=== PATIENT | female | born 1995 | race American Indian/Alaskan Native ===

== ENCOUNTER 2020-04-28 03:26 | Emergency (ER) | payer MEDICAID ==
[2020-04-28 03:37] VITALS: BP 139/81
--- NOTE | 2020-04-28 03:52 | Emergency Department Report ---
ED Female HPI - General Chief complaint: Vaginal Bleeding Stated complaint: HEAVY VAGINAL BLEEDING OVER A MONTH Time Seen by Provider: 04/28/20 03:48 Source: patient Mode of arrival: Ambulatory Limitations: No Limitations - History of Present Illness Initial comments: Patient is a 24-year-old female that presents emergency room with complaints of vaginal bleeding x4 weeks. Patient states however tonight the bleeding increased. Patient states that she has not seen an LIVING ADVISOR. Patient denies pain. Patient denies fatigue. Patient denies weakness. Patient denies abdominal pain. Patient denies dysuria. Patient denies chance of . Patient denies vaginal discharge. Patient denies being on control. Patient states she is a G2, MD Complaint: vaginal bleeding Severity: severe Improves with: none Worsens with: none Are you Now?: No Associated Symptoms: vaginal bleeding. denies: vaginal discharge, abdominal pain, nausea/vomiting, fever/chills, headaches, loss of appetite, dysuria, hematuria, rash, seizure, shortness of breath, syncope, weakness - Related Data Sexually active: Yes : 2 Para: 1 A: 1 Allergies Allergy/AdvReac Type Severity Reaction Status Date / Time No Known Allergies Allergy Unverified 04/28/20 03:38 ED Review of Systems ROS: Stated complaint: HEAVY VAGINAL BLEEDING OVER A MONTH Other details as noted in HPI Constitutional: denies: chills, fever Eyes: denies: eye pain, eye discharge, vision change ENT: denies: ear pain, throat pain Respiratory: denies: cough, shortness of breath, wheezing Cardiovascular: denies: chest pain, palpitations Endocrine: no symptoms reported Gastrointestinal: denies: abdominal pain, nausea, diarrhea Genitourinary: abnormal menses. denies: urgency, dysuria, discharge Musculoskeletal: denies: back pain, joint swelling, arthralgia Skin: denies: rash, lesions Neurological: denies: headache, weakness, paresthesias Psychiatric: denies: anxiety, depression Hematological/Lymphatic: denies: easy bleeding, easy bruising ED Past Medical Hx - Past Medical History Previous Medical History?: No - Surgical History Past Surgical History?: No - Family History Family history: no significant - Social History Smoking Status: Never Smoker Substance Use Type: Alcohol, Marijuana ED Physical Exam - General Limitations: No Limitations General appearance: alert, in no apparent distress - Head Head exam: Present: atraumatic, normocephalic - Eye Eye exam: Present: normal appearance - ENT ENT exam: Present: mucous membranes moist - Neck Neck exam: Present: normal inspection - Respiratory Respiratory exam: Present: normal lung sounds bilaterally. Absent: respiratory distress - Cardiovascular Cardiovascular Exam: Present: regular rate, normal rhythm. Absent: systolic murmur, diastolic murmur, rubs, gallop - GI/Abdominal GI/Abdominal exam: Present: soft, normal bowel sounds - Extremities Exam Extremities exam: Present: normal inspection - Back Exam Back exam: Present: normal inspection - Neurological Exam Neurological exam: Present: alert, oriented X3 - Psychiatric Psychiatric exam: Present: normal affect, normal mood - Skin Skin exam: Present: warm, dry, intact, normal color. Absent: rash ED Course Vital Signs 04/28/20 04/28/20 03:35 04:08 Temperature 97.9 F Pulse Rate 86 Respiratory 18 16 Rate Blood Pressure 139/81 O2 Sat by Pulse 100 100 Oximetry - Reevaluation(s) Reevaluation #1: I discussed all results and clinical findings with patient. I discussed plan of care with patient. Patient agrees with plan of care. Patient is stable for discharge. Patient will be discharged home. Patient given discharge instructions. Patient voiced understanding of discharge instructions. 04/28/20 04:28 ED Medical Decision Making - Lab Data Result diagrams: 04/28/20 03:46 - Medical Decision Making Patient is a 24-year-old female that presents emergency room for vaginal bleeding. Patient is medically well for a long time but increased over the last 24 to 48 hours prior to arrival to the ER. Patient had labs done. Patient shows signs of anemia. Patient's blood count is normal. Patient's labs are es sentially unremarkable. Patient stable for discharge. Patient discharged home. Patient struck to follow-up with an LIVING ADVISOR as it is possible. - Differential Diagnosis Abnormal menses, anemia, hormonal dysfunction Critical care attestation.: If time is entered above; I have spent that time in minutes in the direct care of this critically ill patient, excluding procedure time. ED Disposition Clinical Impression: Abnormal menses, Dysfunctional uterine bleeding, Vaginal bleeding Disposition: - TO HOME OR SELFCARE Is pt being admited?: No Does the pt Need Aspirin: No Condition: Stable Instructions: Dysfunctional Uterine Bleeding (ED), Menorrhagia (ED) Additional Instructions: Patient to follow-up with primary care in 2 to 3 days. Patient to follow-up with LIVING ADVISOR in 2 to 3 days. Patient to rest. Patient to increase water. Patient to avoid strenuous exercise or heavy lifting until cleared by LIVING ADVISOR. Nothing per vagina until cleared by LIVING ADVISOR. Patient started vitamin. Patient to take Tylenol or ibuprofen as needed for pain. Patient to return to the ER if condition worsens, changes or new symptoms arise. Referrals: PRIMARY CARE, [Primary Care Provider] - 2-3 Days Time of Disposition: 04:30
[2020-04-28 04:15] LABS: Basophils % (Auto) 0.8 % (0.0-1.8); Eosinophils # (Auto) 0.1 K/mm3 (0.0-0.4); Eosinophils % (Auto) 2.4 % (0.0-4.3); Hematocrit 33.1 % (30.3-42.9); Hemoglobin 10.9 gm/dl (10.1-14.3); Lymphocytes # (Auto) 1.7 K/mm3 (1.2-5.4); Lymphocytes % (Auto) 43.3 % (13.4-35.0); Mean Corpuscular HGB Conc 33 % (30-34); Mean Corpuscular Volume 90 fl (79-97); Monocytes # (Auto) 0.5 K/mm3 (0.0-0.8); Monocytes % (Auto) 13.9 % (0.0-7.3); Platelet Count 280 K/mm3 (140-440); Red Blood Count 3.67 M/mm3 (3.65-5.03); Red Cell Distribution Width 14.2 % (13.2-15.2)
[2020-04-28 04:20] LABS: Bilirubin,Urine NEG (Negative); Blood,Urine LG (Negative); Color,Urine Yellow (Yellow); Mucus,Urine 1+ /HPF; Urobilinogen,Urine < 2.0 mg/dL (<2.0)
[2020-04-28 04:27] LABS: RBC,Urine > 182.0 /HPF (0.0-6.0)
== END 2020-04-28 05:31 | disposition home or self-care (01) ==
LOC: ED 03:26
DX: N93.8 Other specified abnormal uterine and vaginal bleeding (principal); N92.5 Other specified irregular menstruation; F12.10 Cannabis abuse, uncomplicated
CPT/HCPCS: 36415; 81001; 84702; 85025; 86900; 86901; 87086; 99283

== ENCOUNTER 2021-03-08 11:42 | Emergency (ER) | payer MEDICAID ==
[2021-03-08] MEDS ORDERED: SODIUM CHLORIDE 0.9% 1000 ML 1,000 ML IV ONE (13:21)
[2021-03-08] MEDS ORDERED: METOCLOPRAMIDE 10 MG/2 ML INJ IV ONE (13:21)
[2021-03-08] MEDS ORDERED: ACETAMINOPHEN 500 MG TAB PO ONE (13:21)
--- NOTE | 2021-03-08 13:21 | Emergency Department Report ---
ED N/V/D HPI - General Chief complaint: Nausea/Vomiting/Diarrhea Stated complaint: VOMITING Time Seen by Provider: 03/08/21 13:11 Source: patient Mode of arrival: Ambulatory Limitations: No Limitations - History of Present Illness Initial comments: This is a 25-year-old female that is about 14 weeks nontoxic, well nourished in appearance, no acute signs of distress presents to the ED with c/o of nausea and vomiting several days. Patient stated has some pelvic cramping as well. Denies any vaginal bleeding. Patient describes vomiting as food content. Patient denies any mid or upper abdominal pain, chest pain, short of breath, fever, chills, headache, stiff neck, numbness or tingling. Patient denies any diarrhea or constipation. Denies any blood in stool. Patient denies any urinary symptoms. Denies any vaginal discharge. Patient denies any recent travels. Patient denies any drug allergies significant past medical history. Patient agrees to having an OBGYN that she follows. MD complaint: nausea, vomiting, other (pelvic cramping) -: days(s) Description of Vomiting: food contents Associated Abdominal Pain: Yes (pelvic) Radiation: none Severity: mild Pain Scale: 3 Quality: cramping Consistency: intermittent Improves with: none Worsens with: none Associated Symptoms: nausea/vomiting. denies: myalgias, chest pain, cough, diap horesis, fever/chills, headaches, loss of appetite, malaise, rash, dysuria, shortness of breath, syncope, weakness - Related Data Previous Rx's Medication Instructions Recorded Last Taken Type Metoclopramide [Reglan] 10 mg PO TID #30 tab 01/20/21 Unknown Rx Metoclopramide [Reglan] 10 mg PO TID PRN #20 tab 03/08/21 Unknown Rx Allergies Allergy/AdvReac Type Severity Reaction Status Date / Time No Known Allergies Allergy Verified 03/08/21 12:13 ED Review of Systems ROS: Stated complaint: VOMITING Other details as noted in HPI Comment: All other systems reviewed and negative Constitutional: denies: chills, fever Eyes: denies: eye pain, eye discharge, vision change ENT: denies: ear pain, throat pain Respiratory: denies: cough, shortness of breath, wheezing Cardiovascular: denies: chest pain, palpitations Endocrine: no symptoms reported Gastrointestinal: nausea, vomiting, other (pelvic pain). denies: abdominal pain, diarrhea, constipation, hematemesis, melena, hematochezia Genitourinary: denies: urgency, dysuria, frequency, hematuria, discharge, abnormal menses, dyspareunia Musculoskeletal: denies: back pain, joint swelling, arthralgia Skin: denies: rash, lesions Neurological: denies: headache, weakness, paresthesias Psychiatric: denies: anxiety, depression Hematological/Lymphatic: denies: easy bleeding, easy bruising ED Past Medical Hx - Past Medical History Previous Medical History?: No - Surgical History Past Surgical History?: No - Social History Smoking Status: Never Smoker Substance Use Type: None - Medications Home Medications: Home Medications Medication Instructions Recorded Confirmed Last Taken Type Metoclopramide [Reglan] 10 mg PO TID #30 tab 01/20/21 Unknown Rx Metoclopramide [Reglan] 10 mg PO TID PRN #20 tab 03/08/21 Unknown Rx ED Physical Exam - General Limitations: No Limitations General appearance: alert, in no apparent distress - Head Head exam: Present: atraumatic, normocephalic - Eye Eye exam: Present: normal appearance - Neck Neck exam: Present: normal inspection, full ROM - Respiratory Respiratory exam: Present: normal lung sounds bilaterally. Absent: respiratory distress, wheezes, rales, rhonchi, stridor, chest wall tenderness, accessory muscle use, decreased breath sounds, prolonged expiratory - Cardiovascular Cardiovascular Exam: Present: regular rate, normal rhythm, normal heart sounds. Absent: bradycardia, tachycardia, irregular rhythm, systolic murmur, diastolic murmur, rubs, gallop - GI/Abdominal GI/Abdominal exam: Present: soft, normal bowel sounds. Absent: distended, tenderness, guarding, rebound, rigid, diminished bowel sounds - Extremities Exam Extremities exam: Present: full ROM - Back Exam Back exam: Present: full ROM - Neurological Exam Neurological exam: Present: alert, oriented X3, normal gait - Psychiatric Psychiatric exam: Present: normal affect, normal mood - Skin Skin exam: Present: warm, dry, intact, normal color. Absent: rash ED Course Vital Signs 03/08/21 03/08/21 12:14 16:43 Temperature 97.6 F Pulse Rate 80 Respiratory 20 20 Rate Blood Pressure 122/69 O2 Sat by Pulse 99 Oximetry - Reevaluation(s) Reevaluation #1: 03/08/21 13:21 Patient is speaking in full sentences with no signs of distress noted. ED Medical Decision Making - Lab Data Result diagrams: 03/08/21 13:14 03/08/21 13:14 Lab Results 03/08/21 03/08/21 03/08/21 Range/Units 13:14 13:14 13:14 WBC 6.2 (4.5-11.0) K/mm3 RBC 3.83 (3.65-5.03) M/mm3 Hgb 11.8 (10.1-14.3) gm/dl Hct 35.0 (30.3-42.9) % MCV 92 (79-97) fl MCH 31 (28-32) pg MCHC 34 (30-34) % RDW 14.6 (13.2-15.2) % Plt Count 274 (140-440) K/mm3 Lymph % (Auto) 15.0 (13.4-35.0) % Henry % (Auto) 7.3 (0.0-7.3) % Eos % (Auto) 0.0 (0.0-4.3) % Baso % (Auto) 0.2 (0.0-1.8) % Lymph # (Auto) 0.9 L (1.2-5.4) K/mm3 Henry # (Auto) 0.5 (0.0-0.8) K/mm3 Eos # (Auto) 0.0 (0.0-0.4) K/mm3 Baso # (Auto) 0.0 (0.0-0.1) K/mm3 Seg Neutrophils % 77.5 H (40.0-70.0) % Seg Neutrophils # 4.8 (1.8-7.7) K/mm3 Sodium 132 L (137-145) mmol/L Potassium 3.5 L (3.6-5.0) mmol/L Chloride 95.6 L (98-107) mmol/L Carbon Dioxide 24 (22-30) mmol/L Anion Gap 16 mmol/L BUN 9 (7-17) mg/dL Creatinine 0.6 (0.6-1.2) mg/dL Estimated GFR > 60 ml/min BUN/Creatinine Ratio 15 % Glucose 96 (65-100) mg/dL Calcium 9.7 (8.4-10.2) mg/dL HCG, Quant 88084 H (0-4) mIU/mL Urine Color (Yellow) Urine Turbidity (Clear) Urine pH (5.0-7.0) Ur Specific [place] (1.003-1.030) Urine Protein (Negative) mg/dL Urine Glucose (UA) (Negative) mg/dL Urine Ketones (Negative) mg/dL Urine Blood (Negative) Urine Nitrite (Negative) Urine Bilirubin (Negative) Urine Urobilinogen (<2.0) mg/dL Ur Leukocyte Esterase (Negative) Urine WBC (Auto) (0.0-6.0) /HPF Urine RBC (Auto) (0.0-6.0) /HPF U Epithel Cells (Auto) (0-13.0) /HPF Urine Mucus /HPF 03/08/21 Range/Units Unknown WBC (4.5-11.0) K/mm3 RBC (3.65-5.03) M/mm3 Hgb (10.1-14.3) gm/dl Hct (30.3-42.9) % MCV (79-97) fl MCH (28-32) pg MCHC (30-34) % RDW (13.2-15.2) % Plt Count (140-440) K/mm3 Lymph % (Auto) (13.4-35.0) % Henry % (Auto) (0.0-7.3) % Eos % (Auto) (0.0-4.3) % Baso % (Auto) (0.0-1.8) % Lymph # (Auto) (1.2-5.4) K/mm3 Henry # (Auto) (0.0-0.8) K/mm3 Eos # (Auto) (0.0-0.4) K/mm3 Baso # (Auto) (0.0-0.1) K/mm3 Seg Neutrophils % (40.0-70.0) % Seg Neutrophils # (1.8-7.7) K/mm3 Sodium (137-145) mmol/L Potassium (3.6-5.0) mmol/L Chloride (98-107) mmol/L Carbon Dioxide (22-30) mmol/L Anion Gap mmol/L BUN (7-17) mg/dL Creatinine (0.6-1.2) mg/dL Estimated GFR ml/min BUN/Creatinine Ratio % Glucose (65-100) mg/dL Calcium (8.4-10.2) mg/dL HCG, Quant (0-4) mIU/mL Urine Color Yellow (Yellow) Urine Turbidity Slightly-cloudy (Clear) Urine pH 6.0 (5.0-7.0) Ur Specific [place] 1.030 (1.003-1.030) Urine Protein 100 mg/dl (Negative) mg/dL Urine Glucose (UA) Neg (Negative) mg/dL Urine Ketones 80 (Negative) mg/dL Urine Blood Neg (Negative) Urine Nitrite Neg (Negative) Urine Bilirubin Neg (Negative) Urine Urobilinogen < 2.0 (<2.0) mg/dL Ur Leukocyte Esterase Neg (Negative) Urine WBC (Auto) 5.0 (0.0-6.0) /HPF Urine RBC (Auto) 2.0 (0.0-6.0) /HPF U Epithel Cells (Auto) 7.0 (0-13.0) /HPF Urine Mucus 3+ /HPF - Radiology Data [facility] [address] [place] [address] Ultrasound Report Signed Patient: ISA QUEZADA MR#: [id number] : 1995 Acct:[id number] Age/Sex: 25 / F ADM Date: 03/08/21 Loc: ED Attending Dr: Ordering Physician: DANISHA GAMING NP Date of Service: 03/08/21 Procedure(s): US OB >= 14 weeks Fetus Accession Number(s): [id number] cc: DANISHA GAMING NP ULTRASOUND OBSTETRIC INDICATION / CLINICAL INFORMATION: pelvic pain. Clinical Gestational Age (GA) in weeks, days: 13, 5 TECHNIQUE: Transabdominal. COMPARISON: None available. FINDINGS: Single intrauterine . Biparietal Diameter = 2.6 cm = 14, 4 weeks, days Head Circumference = 8.9 cm = 13, 6 weeks, days Abdominal Circumference = 7.5 cm = 14 weeks, days Femur Length = 1.3 cm = 13, 6 weeks, days Average Ultrasound Age (AUA) = 14, 1 weeks, days Heart Rate: 153 beats per minute. Estimated Weight in grams (if calculated): Not calculated Estimated Weight Growth Percentile (if calculated): Not calculated Cervix: closed. Length in cm (if measured): 3.9 Placenta: Anterior and posteriorly and free of the os. Amniotic Fluid Volume: normal Amniotic Fluid Index (SALVATORE) in cm (if calculated): Not calculated. Maternal Adnexa: No significant abnormality. IMPRESSION: 1. Single, living intrauterine with estimated sonographic age of 14, 1 weeks, days. 2. No significant sonographic abnormality. Signer Name: Angel Luis Sahu MD Signed: 03/08/2021 2:28 PM Workstation Name: [id number] Transcribed By: Dictated By: Angel Luis Sahu MD Electronically Authenticated By: Angel Luis Sahu MD Signed Date/Time: 03/08/211427 DD/ 22 TD/TT: - Medical Decision Making This is a 25-year-old female that presents with hyperemesis. Patient is stable and was examined by me. There is no abdominal tenderness. Negative signs of symptoms of appendicitis, cholecystitis or acute abdomen. Labs obtained. UA obtained. OB ultrasound and transvaginal obtained and dictated by the radiologist. Patient is notified of the report with no questions noted by the patient. Vital signs are stable prior to discharge. Patient received Reglan and 1L Normal saline in the ED which patient stated symptoms has resovled and subs ided. A by mouth challenge has been obtained and patient tolerated well with no nausea vomiting. Patient was also instructed to Follow-up with a [facility] doctor in 3-5 days or if symptoms worsen and continue return to emergency room as soon as possible. At time of discharge, the patient does not seem toxic or ill in appearance. No acute signs of distress noted. Patient agrees to discharge treatment plan of care. No further questions noted by the patient. Critical care attestation.: If time is entered above; I have spent that time in minutes in the direct care of this critically ill patient, excluding procedure time. ED Disposition Clinical Impression: Hyperemesis gravidarum Disposition: DC-01 TO HOME OR SELFCARE Is pt being admited?: No Does the pt Need Aspirin: No Condition: Stable Instructions: Hyperemesis Gravidarum Additional Instructions: Follow-up with a [facility] doctor in 3-5 days or if symptoms worsen and continue return to emergency room as soon as possible. Prescriptions: Metoclopramide [Reglan] 10 mg PO TID PRN #20 tab PRN Reason: Nausea Referrals: PRIMARY CARE, [Referring] - 3-5 Days [facility] [Provider Group] - 3-5 Days [facility] [Provider Group] - 3-5 Days Forms: Work/School Release Form(ED) Time of Disposition: 17:03
[2021-03-08 13:35] LABS: Bilirubin,Urine NEG (Negative); Blood,Urine NEG (Negative); Color,Urine Yellow (Yellow); Mucus,Urine 3+ /HPF; Urobilinogen,Urine < 2.0 mg/dL (<2.0)
[2021-03-08 13:35] LABS: Basophils % (Auto) 0.2 % (0.0-1.8); Hemoglobin 11.8 gm/dl (10.1-14.3); Lymphocytes # (Auto) 0.9 K/mm3 (1.2-5.4); Mean Corpuscular HGB Conc 34 % (30-34); Mean Corpuscular Volume 92 fl (79-97); Monocytes # (Auto) 0.5 K/mm3 (0.0-0.8); Monocytes % (Auto) 7.3 % (0.0-7.3); Platelet Count 274 K/mm3 (140-440); Red Blood Count 3.83 M/mm3 (3.65-5.03); Red Cell Distribution Width 14.6 % (13.2-15.2)
[2021-03-08 13:44] LABS: Blood Urea Nitrogen 9 mg/dL (7-17); Calcium 9.7 mg/dL (8.4-10.2); Hemolysis Index 4
--- NOTE | 2021-03-08 14:32 | Ultrasound Report ---
ULTRASOUND OBSTETRIC INDICATION / CLINICAL INFORMATION: pelvic pain. Clinical Gestational Age (GA) in weeks, days: 13, 5 TECHNIQUE: Transabdominal. COMPARISON: None available. FINDINGS: Single intrauterine . Biparietal Diameter = 2.6 cm = 14, 4 weeks, days Head Circumference = 8.9 cm = 13, 6 weeks, days Abdominal Circumference = 7.5 cm = 14 weeks, days Femur Length = 1.3 cm = 13, 6 weeks, days Average Ultrasound Age (AUA) = 14, 1 weeks, days Heart Rate: 153 beats per minute. Estimated Weight in grams (if calculated): Not calculated Estimated Weight Growth Percentile (if calculated): Not calculated Cervix: closed. Length in cm (if measured): 3.9 Placenta: Anterior and posteriorly and free of the os. Amniotic Fluid Volume: normal Amniotic Fluid Index (SALVATORE) in cm (if calculated): Not calculated. Maternal Adnexa: No significant abnormality. IMPRESSION: 1. Single, living intrauterine with estimated sonographic age of 14, 1 weeks, days. 2. No significant sonographic abnormality. Signer Name: Angel Luis Sahu MD Signed: 03/08/2021 2:28 PM Workstation Name: [id number]
[2021-03-08 14:35] LABS: BUN/Creatinine Ratio 15
[2021-03-08 18:58] VITALS: BP 124/70
== END 2021-03-08 18:56 | disposition home or self-care (01) ==
LOC: ED 11:42
DX: O21.0 Mild hyperemesis gravidarum (principal); Z3A.14 14 weeks gestation of pregnancy; Z79.899 Other long term (current) drug therapy
CPT/HCPCS: 36415; 76805; 80048; 81001; 84702; 85025; 96361; 96374; 99284; J2765; J7030; 76817